=== PATIENT | female | born 1935 | race Caucasian/White ===

== ENCOUNTER 2020-06-17 00:42 | Emergency (ER) | payer MEDICARE ==
[~2020-06-17] VITALS: Ht 157.5 cm; Wt 68.2 kg
[2020-06-17] MEDS ORDERED: HYDROCHLORTHIAZIDE PO (01:28)
[2020-06-17] MEDS ORDERED: benazepril PO (01:28)
[2020-06-17] MEDS ORDERED: clonidine PO (01:28)
[2020-06-17 01:31] LABS: BASOPHILS % (AUTO) 0.8 % (0.0-2.0); EOSINOPHILS % (AUTO) 3.2 % (1.0-6.0); HEMATOCRIT 39.8 % (36-46); HEMOGLOBIN 13.4 g/dL (12.0-16.0); LYMPHOCYTES # (AUTO) 2.7 K/uL (1.0-4.8); MEAN CORPUSCULAR HEMOGLOBIN 31.1 pg (26.0-34.0); MEAN CORPUSCULAR HGB CONC 33.7 G/dL (31.0-37.0); MEAN CORPUSCULAR VOLUME 92 fL (80-100); MONOCYTES # (AUTO) 1.2 K/uL (0.1-1.0); MONOCYTES % (AUTO) 10.8 % (2.0-9.0); NEUTROPHILS # (AUTO) 6.6 K/uL (1.8-7.7); NEUTROPHILS % (AUTO) 60.2 % (40.0-70.0); PLATELET COUNT (AUTO) 318 K/uL (150-450); RED CELL DISTRIBUTION WIDTH 13.7 % (11.5-14.5)
[2020-06-17 01:45] LABS: ALANINE AMINOTRANSFERASE 22 U/L (12-78); ALBUMIN 3.4 g/dL (3.4-5.0); ALKALINE PHOSPHATASE 78 U/L (46-116); ANION GAP 9 mmol/L (8-16); ASPARTATE AMINOTRANSFERASE 19 U/L (15-37); BILIRUBIN,TOTAL 0.6 mg/dL (0.1-1.0); CALCIUM, TOTAL 8.8 mg/dL (8.8-10.5); CARBON DIOXIDE 27 mmol/L (22-29); CHLORIDE 95 mmol/L (98-107); CREATININE 0.83 mg/dL (0.60-1.30); GLUCOSE,RANDOM 103 mg/dL (70-110); SODIUM SERUM 131 mmol/L (136-145); UREA NITROGEN, BLOOD 17 mg/dL (7-18)
[2020-06-17 01:48] LABS: GLOMERULAR FILTR. RATE CALC > 60 mL/min (>60)
[2020-06-17 01:50] LABS: B-TYPE NATRIURETIC PEPTIDE 25 pg/mL (0-100)
[2020-06-17 01:59] LABS: COVID AG,FIA SOURCE NASOPHARYNGEAL
[2020-06-17] MEDS ORDERED: SODIUM CHLORIDE 0.9% 1,000 ML IV ONE (04:15)
[2020-06-17] MEDS ORDERED: POTASSIUM CHLORIDE 10% 40 MEQ/30 ML LIQUID UDCUP PO ONE (04:15)
[2020-06-17 04:20] VITALS: BP 152/97
== END 2020-06-17 04:47 | disposition left against medical advice (07) ==
LOC: EMS 00:46
DX: R55 Syncope and collapse (principal); E87.6 Hypokalemia; I10 Essential (primary) hypertension; Z20.822 Contact with and (suspected) exposure to COVID-19
CPT/HCPCS: 70450; 71045; 80053; 83880; 84484; 85025; 87426; 93005; 99285; G0480; 36415-L1; 36415-TC

== ENCOUNTER 2023-06-09 12:30 | Emergency (ER) | payer MEDICARE ==
[~2023-06-09] VITALS: Ht 160 cm; Wt 68.2 kg
[~2023-06-09 12:30] MED LIST: HYDROCHLORTHIAZIDE PO; benazepril PO; clonidine PO
[2023-06-09 12:40] VITALS: TEMP 97.9
[2023-06-09] MEDS ORDERED: CLON-353 PO (14:24)
[2023-06-09] MEDS ORDERED: BENA10TA76 PO (14:24)
[2023-06-09] MEDS ORDERED: HYDR25TA PO (14:24)
[2023-06-09] MEDS ORDERED: LEVO5TAB13 PO (14:24)
[2023-06-09] MEDS ORDERED: TIMO5DRO18 OU (14:24)
[2023-06-09] MEDS: BACITRACIN 0.9 GM PACKET OINTMENT TP ONE (14:33)
[2023-06-09] MEDS: LIDOCAINE 1% 10 ML VIAL SQ ONE (14:33)
[2023-06-09] MEDS: ACETAMINOPHEN 500 MG TABLET PO ONE (14:34)
[2023-06-09 16:15] VITALS: BP 140/85; PULSE 83; RESP 14
== END 2023-06-09 16:32 | disposition home or self-care (01) ==
LOC: EMS 12:30
DX: S01.81XA Laceration without foreign body of other part of head, initial encounter (principal); S61.219A Laceration without foreign body of unspecified finger without damage to nail, initial encounter; S80.01XA Contusion of right knee, initial encounter; S80.02XA Contusion of left knee, initial encounter; I10 Essential (primary) hypertension; W01.0XXA Fall on same level from slipping, tripping and stumbling without subsequent striking against object, initial encounter; Y93.01 Activity, walking, marching and hiking; Y92.89 Other specified places as the place of occurrence of the external cause; Y99.8 Other external cause status
CPT/HCPCS: 99284; 70450; 73130; 73562 ×2; 70486; 72125; 12001; 12013; J3490